=== PATIENT | male | born 1995 | race Caucasian/White ===

== ENCOUNTER 2023-04-12 15:52 | Emergency (ER) | payer OTHER ==
[~2023-04-12] VITALS: Ht 182.9 cm; Wt 113.4 kg
[2023-04-12 16:04] VITALS: BP 157/95; PULSE 123; RESP 14; TEMP 99.6; O2SAT 96
[2023-04-12 16:26] VITALS: O2SAT 97
[2023-04-12] MEDS ORDERED: NACL 0.9% 1,000 ML IV ONE (16:50)
[2023-04-12 17:22] LABS: BASOPHILS # (AUTO) 0.1 K/uL (0.00-0.22); BASOPHILS % (AUTO) 0.3 % (0.0-2.0); EOSINOPHILS % (AUTO) 0.3 % (0.0-4.0); HEMATOCRIT 29.9 % (36-52); HEMOGLOBIN 9.8 g/dL (12.0-18.0); LYMPHOCYTES # (AUTO) 1.6 K/uL (2.0-11.5); LYMPHOCYTES % (AUTO) 9.8 % (20.5-51.1); MEAN CORPUSCULAR HEMOGLOBIN 27 pg (27-31); MEAN CORPUSCULAR HGB CONC 33 g/dL (33-37); MEAN CORPUSCULAR VOLUME 82.3 fL (80-94); MONOCYTES # (AUTO) 1.2 K/uL (0.8-1.0); MONOCYTES % (AUTO) 7.2 % (1.7-9.3); NEUTROPHILS # (AUTO) 13.4 K/uL (1.8-7.7); NEUTROPHILS % (AUTO) 82.4 % (42.2-75.2); PLATELET COUNT (AUTO) 324 K/uL (140-450); RED BLOOD CELL COUNT(AUTO) 3.64 MIL/uL (4.20-6.10); RED CELL DISTRIBUTION WIDTH 15.1 % (11.6-13.7); WHITE BLOOD COUNT (AUTO) 16.3 K/uL (4.8-10.8)
[2023-04-12 17:35] LABS: ALBUMIN 2.8 g/dL (3.4-5.0); ANION GAP 15.1 (8-16); CALCIUM 8.4 mg/dL (8.5-10.1); CARBON DIOXIDE 25.5 mmol/L (21-32); CREATININE 1.1 mg/dL (0.6-1.3); POTASSIUM 3.6 mmol/L (3.5-5.1); TOTAL BILIRUBIN 0.6 mg/dL (0.0-1.0); TOTAL PROTEIN, SERUM 8.2 g/dL (6.4-8.2)
[2023-04-12 17:37] LABS: LACTIC ACID 0.8 mmol/L (0.4-2.0)
[2023-04-12] MEDS ORDERED: MORPHINE SULFATE 4 MG/ML SYR IVP ONE ×3 (18:05→23:20)
[2023-04-12 19:37] VITALS: O2SAT 97
[2023-04-12 21:36] VITALS: O2SAT 97
[2023-04-12] MEDS ORDERED: cefTRIAXone 2,000 MG in DEXTROSE 5% 100 ML IV ONE (23:55)
[2023-04-12] MEDS ORDERED: metroNIDAZOLE 500 MG/NS PREMIX 100 ML IV ONE (23:55)
[2023-04-13] MEDS ORDERED: cefTRIAXone 2,000 MG VIAL ONE (00:11)
[2023-04-13 00:26] VITALS: O2SAT 97
[2023-04-13] MEDS ORDERED: MORPHINE SULFATE 4 MG/ML SYR IVP ONE ×4 (02:35→16:45)
[2023-04-13 03:01] VITALS: O2SAT 96
[2023-04-13 05:35] VITALS: O2SAT 96
[2023-04-13] MEDS ORDERED: NACL 0.9% 1,000 ML IV ONE (12:55)
[2023-04-13 17:40] VITALS: BP 140/92; PULSE 103; RESP 25; TEMP 99; O2SAT 96
== END 2023-04-13 17:40 | disposition short-term general hospital (02) ==
LOC: MED 15:52
DX: S36.39XA Other injury of stomach, initial encounter (principal); D72.829 Elevated white blood cell count, unspecified; D64.9 Anemia, unspecified; J81.1 Chronic pulmonary edema; W34.09XA Accidental discharge from other specified firearms, initial encounter; Y93.89 Activity, other specified; Y92.89 Other specified places as the place of occurrence of the external cause; Y99.8 Other external cause status
CPT/HCPCS: 36415; 71045; 71275; 74174; 80053; 83605; 83690; 84484; 85025; 85379; 87040; 93005; 96361; 96365; 96367; 96375; 96376; 99285; J0696; J2270; J3490; J7030; Q0092; Q9967